=== PATIENT | female | born 1970 | race Caucasian/White ===

== ENCOUNTER 2017-12-02 08:25 | Emergency (ER) | payer OTHER ==
[2017-12-02 08:53] VITALS: BP 99/51
--- NOTE | 2017-12-02 10:35 | UC ---
Complaint Female HPI - HPI Summary HPI Summary: started gradually over 2 weeks with urinary frequency and mild burning. no vaginal itch, d/c or pain - History Of Current Complaint Chief Complaint: UCGU Stated Complaint: URINARY ISSUE Time Seen by Provider: 12/02/17 10:25 Hx Obtained From: Patient Hx Last Menstrual Period: 2 WEEKS AGO ?: No Onset/Duration: Gradual Onset Pain Intensity: 4 Character: Dull, Burning Aggravating Factor(s): Urination Alleviating Factor(s): Nothing Associated Signs And Symptoms: Positive: Negative - Allergies/Home Medications Allergies/Adverse Reactions: Allergies Allergy/AdvReac Type Severity Reaction Status Date / Time No Known Allergies Allergy Verified 12/02/17 08:46 Home Medications: Home Medications Control 1 tab PO DAILY 12/02/17 [History Confirmed 12/02/17] Cranberry Fruit Extract [Cranberry] 3 tab PO BID 12/02/17 [History Confirmed ] PMH/Surg Hx/FS Hx/Imm Hx Previously Healthy: Yes - Surgical History Surgical History: None - Family History Known Family History: Positive: None - Social History Occupation: Employed Full-time Lives: With Family Alcohol Use: Rare Substance Use Type: None Smoking Status (MU): Never Smoked Tobacco Review of Systems Constitutional: Negative Respiratory: Negative Cardiovascular: Negative Gastrointestinal: Negative Genitourinary: Dysuria, Frequency Neurological: Negative Psychological: Negative Is Patient Immunocompromised?: No All Other Systems Reviewed And Are Negative: Yes Physical Exam Triage Information Reviewed: Yes Vital Signs: Initial Vital Signs Temp 99.4 F 12/02/17 08:49 Pulse 52 12/02/17 08:49 Resp 16 12/02/17 08:49 BP 99/51 12/02/17 08:49 Pulse Ox 100 12/02/17 08:49 Vital Signs Reviewed: Yes Respiratory Exam: Normal Cardiovascular Exam: Normal Abdominal Exam: Normal Abdomen Description: Positive: Nontender, No Organomegaly, Soft. Negative: CVA Tenderness (R), CVA Tenderness (L) Psychological Exam: Normal Skin Exam: Normal Complaint Female Dx - Differential Dx/Diagnosis Differential Diagnosis/HQI/PQRI: Ureteral Stone, Urinary Tract Infection, Other - vaginitis Provider Diagnoses: UTI Discharge - Sign-Out/Discharge Documenting (check all that apply): Discharge/Admit/Transfer - Discharge Plan Condition: Good Disposition: HOME Prescriptions: Ciprofloxacin HCl [Cipro] 500 mg PO BID #10 tablet Patient Education Materials: Urinary Tract Infection in Women (ED) Referrals: Irene Abbasi MD [Primary Care Provider] - 3 Days (if no better) Additional Instructions: drink plenty of fluids use antibiotic (cipro) as directed and follow-up with urine culture results - Billing Disposition and Condition Condition: GOOD Disposition: HOME
--- NOTE | 2017-12-04 15:08 | UC ---
- Progress Note Progress Note: Urine culture final with E. Coli. Sensitive to cipro. No change. Discharge - Sign-Out/Discharge Documenting (check all that apply): Post-Discharge Follow Up - Discharge Plan Condition: Good Disposition: HOME Prescriptions: Ciprofloxacin HCl [Cipro] 500 mg PO BID #10 tablet Patient Education Materials: Urinary Tract Infection in Women (ED) Referrals: Irene Abbasi MD [Primary Care Provider] - 3 Days (if no better) Additional Instructions: drink plenty of fluids use antibiotic (cipro) as directed and follow-up with urine culture results - Billing Disposition and Condition Condition: GOOD Disposition: HOME
== END 2017-12-02 10:46 | disposition home or self-care (01) ==
LOC: UCEAST 08:25
DX: N39.0 Urinary tract infection, site not specified (principal)
CPT/HCPCS: 81003; 87077; 87086; 87186; 99212; G0463

== ENCOUNTER 2018-02-03 10:31 | Emergency (ER) | payer OTHER ==
[2018-02-03 10:56] VITALS: BP 113/64
--- NOTE | 2018-02-03 11:12 | UC ---
Throat Pain/Nasal Fredy HPI - HPI Summary HPI Summary: 47 yo female presents with a sore throat. She tells me that for the past 3 weeks she has had a scratchy throat and post nasal drip. Has been taking zyrtec and flonase with no relief. Over the last 2 days her throat has become more sore and is painful when swallowing. Low grade fever. Denies chills, cough, rash , headache, SOB, chest pain. - History of Current Complaint Chief Complaint: UCRespiratory Stated Complaint: SORE THROAT Time Seen by Provider: 02/03/18 11:12 Hx Obtained From: Patient Hx Last Menstrual Period: 01/24/18 Onset/Duration: Gradual Onset Severity: Mild Pain Intensity: 4 Pain Scale Used: 0-10 Numeric - Allergies/Home Medications Allergies/Adverse Reactions: Allergies Allergy/AdvReac Type Severity Reaction Status Date / Time No Known Allergies Allergy Verified 02/03/18 10:56 Home Medications: Home Medications Cholecalciferol TAB* [Vitamin D TAB*] 2,000 units PO DAILY 02/03/18 [History Confirmed 02/03/18] Turmeric [Curcumin] 250 gm MC DAILY 02/03/18 [History Confirmed 02/03/18] PMH/Surg Hx/FS Hx/Imm Hx - Additional Past Medical History Additional PMH: None Previously Healthy: Yes - Surgical History Surgical History: None - Family History Known Family History: Positive: None - Social History Occupation: Employed Full-time Lives: With Family Alcohol Use: Rare Substance Use Type: None Smoking Status (MU): Never Smoked Tobacco Review of Systems Constitutional: Negative Skin: Negative Eyes: Negative ENT: Sore Throat Respiratory: Negative Cardiovascular: Negative Gastrointestinal: Negative Neurovascular: Negative Neurological: Negative Psychological: Negative All Other Systems Reviewed And Are Negative: Yes Physical Exam - Summary Physical Exam Summary: GENERAL: NAD. WDWN. No pain distress. SKIN: No rashes, sores, lesions, or open wounds. HEENT: Head: AT/NC Eyes: Conjunctiva clear without inflammation or discharge. Ears: Hearing grossly normal. TMs intact, no bulging, erythema, or edema. Nose: Nasal mucosa pink and moist. NTTP maxillary and frontal sinus. Throat: Posterior oropharynx mild erythema. No tonsillar enlargement. No exudates. Uvula midline. No hoarse voice or muffled voice. NECK: Supple. Nontender. No lymphadenopathy. CHEST: CTAB. No r/r/w. No accessory muscle use. Breathing comfortably and in no distress. CV: RRR. Without m/r/g. Pulses intact. Brisk cap refill. NEURO: Alert. CN II-XII grossly intact. PSYCH: Age appropriate behavior. Triage Information Reviewed: Yes Vital Signs: Initial Vital Signs Temp 100 F 02/03/18 10:49 Pulse 60 02/03/18 10:49 Resp 14 02/03/18 10:49 BP 113/64 02/03/18 10:49 Pulse Ox 99 02/03/18 10:49 Vital Signs Reviewed: Yes Throat Pain/Nasal Course/Dx - Course Course Of Treatment: Pharyngitis. Pt requesting antibiotic therapy. - Differential Dx/Diagnosis Provider Diagnoses: Pharyngitis Discharge - Sign-Out/Discharge Documenting (check all that apply): Patient Departure - Discharge Plan Condition: Stable Disposition: HOME Prescriptions: Amoxicillin PO (*) [Amoxicillin 500 MG CAP*] 500 mg PO Q12H #14 cap Patient Education Materials: Pharyngitis (ED) Referrals: Irene Abbasi MD [Primary Care Provider] - Additional Instructions: If you develop a fever, shortness of breath, chest pain, new or worsening symptoms - please call your PCP or go to the ED. Per institutional requirements, I have reviewed the chart, however, I was not consulted specifically or made aware of this patient by the above midlevel provider. I did not personally evaluate, interact with , or disposition this patient. - Billing Disposition and Condition Condition: STABLE Disposition: Home
== END 2018-02-03 11:30 | disposition home or self-care (01) ==
LOC: UCEAST 10:31
DX: J02.9 Acute pharyngitis, unspecified (principal)
CPT/HCPCS: 99212; G0463